=== PATIENT | female | born 1960 | race Caucasian/White ===

== ENCOUNTER → 2018-01-23 15:13 | Outpatient (CLI) | payer BC, SELFPAY ==
--- NOTE | 2018-01-23 15:18 | XR_ITS ---
XR foot LT min 3V Ordering Physician: Salvatore Burks Patient Age: 57 years: Female HISTORY: ITS.REASON: LEFT FOOT PAIN,S/P IMJURY 2 WKS AGO TECHNIQUE: 3 views of the left foot . COMPARISON :Left ankle study from December 2009 FINDINGS No acute fracture or findings Normal relationships. No erosions. What appear to be old fractures in the proximal shaft of the third and fourth metatarsals. These appear old. I would of favor remote injury. In fact in reviewing the PACS files, there is a left ankle study from 2009 which I believe shows some subtle old healed fractures of the proximal fourth and fifth metatarsal further supporting these are old Otherwise the metatarsals are intact with no acute findings. Tarsals intact Accessory ossicle at the margin of the the cuboid is stable. The toes unremarkable IMPRESSION: No acute findings Old appearing fractures at the proximal fourth and fifth metatarsals . (These old healed fractures vaguely evident on a ankle study from 2009)
== END ==
PROVIDERS: PCP Internal Medicine; Visit Provider Internal Medicine
DX: M79.672 Pain in left foot (principal)
CPT/HCPCS: 73630

== ENCOUNTER → 2018-04-10 16:00 | Outpatient (CLI) | payer BC, SELFPAY ==
--- NOTE | 2018-04-10 16:07 | XR_ITS ---
XR ankle LT min 3V HISTORY: ITS.REASON: ANKLE INJURY; LATERAL PAIN ORDERING PHYSICIAN: Salvatore Burks PATIENT AGE: 57 years FINDINGS: COMPARISON is made to 12/18/2009 Chronic changes are present at the tip of the medial malleolus. No acute fracture or dislocation is evident. There is a defect within the anterior distal tibia within the articular region. This measures 7 mm. IMPRESSION: No acute finding. 7 mm articular defect of the anterior distal tibia
== END ==
PROVIDERS: PCP Internal Medicine; Visit Provider Internal Medicine
DX: M25.572 Pain in left ankle and joints of left foot (principal)
CPT/HCPCS: 73610

== ENCOUNTER → 2018-05-03 14:20 | Outpatient (CLI) | payer BC, SELFPAY ==
--- NOTE | 2018-05-03 14:25 | XR_ITS ---
XR shoulder LT min 2V HISTORY: ITS.REASON: LT SHOULDER PAIN ORDERING PHYSICIAN: Salvatore Burks PATIENT AGE: 57 years Comparison: None FINDINGS: No fracture or dislocation. No lytic or blastic change. There is normal mineralization. There are mild osteoarthritic changes of the acromioclavicular joint and glenohumeral joint. No significant subacromial stenosis IMPRESSION: Mild osteoarthritis, no acute finding
== END ==
PROVIDERS: PCP Internal Medicine; Visit Provider Internal Medicine
DX: M25.512 Pain in left shoulder (principal)
CPT/HCPCS: 73030

== ENCOUNTER → 2019-02-24 10:54 | Outpatient (CLI) | payer OTHER, SELFPAY ==
--- NOTE | 2019-02-24 11:12 | XR_ITS ---
PROCEDURE: XR SHOULDER LT MIN 2V CLINICAL INDICATION: INJURY 3 WEEKS AGO Pain following injury COMPARISON: [id number] XR shoulder LT min 2V from 05/03/2018 FINDINGS: No acute fracture or dislocation. There are mild osteoarthritic changes at the acromioclavicular joint not significantly changed IMPRESSION: No change with no acute finding Dictated by: Jared Griffiths MD 02/24/2019 11:29 Electronically signed by Jared Griffiths MD in [place] 02/24/2019 11:29
== END ==
PROVIDERS: PCP Internal Medicine; Visit Provider Internal Medicine
DX: M25.512 Pain in left shoulder (principal)
CPT/HCPCS: 73030

== ENCOUNTER → 2019-07-18 11:04 | Outpatient (CLI) | payer SELFPAY ==
--- NOTE | 2019-07-18 11:19 | ECG_ITS ---
APPROVED REPORT Exam: Resting ECG HR:78 bpm ECG Measurements Heart Rate 78 AXES NE 146 P 56 QRSd 74 QRS 94 QT 398 T 26 QTc 453 <Conclusion> Normal sinus rhythm Rightward axis-Suspect Limb Lead Reversal Incomplete RBBB Abnormal ECG Electronically signed by : Salvatore Burks, 07/18/2019 11:42:44
[2019-07-18 12:03] LABS: Troponin I < 0.02 ng/ml (0.00-0.06)
== END ==
PROVIDERS: PCP Internal Medicine; Visit Provider Internal Medicine
DX: R00.2 Palpitations (principal); R06.02 Shortness of breath
CPT/HCPCS: 36415; 84484; 93005

== ENCOUNTER → 2019-09-21 10:51 | Outpatient (CLI) | payer OTHER, SELFPAY ==
--- NOTE | 2019-09-21 10:57 | XR_ITS ---
PROCEDURE: XR FOOT LT MIN 3V CLINICAL INDICATION: INJURY, PAIN AND SWELLING Pain and swelling laterally COMPARISON: [id number] XR foot LT min 3V from 01/23/2018 FINDINGS: No acute fracture or dislocation is evident. Old fractures are present at the proximal aspect of the 3rd and 4th metatarsals. There are mild degenerative changes of the midfoot Other findings:None. IMPRESSION: No acute findings. Dictated by: Jared Griffiths MD 09/21/2019 11:17 Electronically signed by Jared Griffiths MD in [place] 09/21/2019 11:17
== END ==
PROVIDERS: PCP Internal Medicine; Visit Provider Internal Medicine
DX: M79.672 Pain in left foot (principal); M79.89 Other specified soft tissue disorders
CPT/HCPCS: 73630

== ENCOUNTER → 2020-10-15 12:00 | Outpatient (CLI) | payer SELFPAY ==
--- NOTE | 2020-10-15 12:05 | XR_ITS ---
PROCEDURE: XR FOOT LT MIN 3V CLINICAL INDICATION: LT FOOT PAIN COMPARISON: CR [id number] XR foot LT min 3V from 01/23/2018 CR XR FOOT LT MIN 3V from 09/21/2019 FINDINGS: No acute fractures or dislocations. Old healed fractures of the 3rd and 4th metatarsals. Bone density is normal. No significant soft tissue abnormality. IMPRESSION: No acute fractures or dislocations. Dictated by: Carmen Shaw 10/15/2020 12:59 Carmen Shaw in [place] 10/15/2020 12:59
== END ==
LOC: RAD 12:01
PROVIDERS: PCP Internal Medicine; Visit Provider Internal Medicine
DX: M79.672 Pain in left foot (principal)
CPT/HCPCS: 73630

== ENCOUNTER → 2021-02-10 15:43 | Outpatient (CLI) | payer OTHER, SELFPAY ==
--- NOTE | 2021-02-10 | CA_ITS ---
APPROVED REPORT Bilateral Lower Extremity Venous Study for DVT. Product Coordinator: GABY Indications Lower Extremity Pain: Bilateral Lower Extremity Edema: Bilateral Patient denies trauma. States her thighs began hurting 3 weeks ago. 2 weeks ago the pain began moving down the calves and into bilateral feet. She states bilateral legs are very sensitive to light touch. Risk Factors Obesity Vein Imaging CFV (R): compressive, spontaneous, phasic, augmentation FEM (R): compressive, spontaneous, phasic, augmentation POP (R): compressive, spontaneous, phasic, augmentation PTV (R): Compressible GSV (R): Compressible Peroneals (R):Compressible GAS (R): Compressible CFV (L): compressive, spontaneous, phasic, augmentation FEM (L): compressive, spontaneous, phasic, augmentation POP (L): compressive, spontaneous, phasic, augmentation PTV (L): Compressible GSV (L): Compressible Peroneals (L):Compressible GAS (L): Compressible Findings No evidence of DVT or superficial thrombophlebitis in the veins scanned of the right lower extremity. No evidence of DVT or superficial thrombophlebitis in the veins scanned of the left lower extremity. Conclusion No evidence of DVT or superficial thrombophlebitis in the veins scanned of the right lower extremity. No evidence of DVT or superficial thrombophlebitis in the veins scanned of the left lower extremity. Critical Notification Critical Value: No Physician Notified Date: 02/10/2021 Time: 16:41 Physician Name: Dr. Burks Electronically signed by : Jared Griffiths MD 02/11/2021 15:55:49
[2021-02-10 20:22] LABS: Amphetamine/Metha Screen,Urine Negative ng/ml (<1000)
[2021-02-10 20:23] LABS: Barbiturates Screen,Urine Negative ng/ml (<200); Basophils % 0.6 % (0.1-2.0); Benzodiazepines Screen,Urine Negative ng/ml (<200); Eosinophils # 0.1 K/mm3 (0.0-0.4); Eosinophils % 2.1 % (0.1-12.0); Hematocrit 32.8 % (37.0-47.0); Hemoglobin 10.3 g/dL (12.2-16.2); Lymphocytes # 1.6 K/mm3 (0.7-4.5); Lymphocytes % 30.7 % (10-50); Mean Corpuscular HGB Conc 31.3 g/dL (31.8-35.4); Mean Corpuscular Volume 92.6 fl (81-99); Mean Platelet Volume 8.7 fl (7.4-10.4); Monocytes # 0.4 K/mm3 (0.1-1.0); Monocytes % 7.2 % (1.7-9.3); Neutrophils # 3.1 K/mm3 (1.8-7.8); Neutrophils % 59.4 % (37.0-80.0); Platelet Count 391 K/mm3 (142-424); Red Blood Count 3.54 M/mm3 (4.20-5.40); Red Cell Distribution Width 14.7 % (11.5-17.5); White Blood Count 5.2 K/mm3 (4.8-10.8)
[2021-02-10 20:24] LABS: Cannabinoid Screen,Urine Negative ng/ml (<50); Cocaine Screen,Urine Negative ng/ml (<300)
[2021-02-10 20:25] LABS: Methadone Screen,Urine Negative ng/ml (<300)
[2021-02-10 20:26] LABS: Opiate Screen,Urine Positive ng/ml (<300); Phencyclidine Screen,Urine Negative ng/ml (<25)
[2021-02-10 21:17] LABS: Alanine Aminotransferase 15 U/L (12-78); Albumin Level 3.5 g/dl (3.5-5.0); Albumin/Globulin Ratio 1.3 (1.1-1.8); Alkaline Phosphatase 22 U/L (38-126); Anion Gap 15.3 mEq/L (5-15); Aspartate Amino Transferase 23 U/L (14-36); Blood Urea Nitrogen 29 mg/dl (7-17); Calcium 9.2 mg/dl (8.4-10.2); Carbon Dioxide 25 mmol/L (22.0-30.0); Chloride 102 mmol/L (98-107); Estimated Glomerular Filt Rate 46 ml/min (>60); GFR (African American) 55 ML/MIN (>60); Globulin 2.6 g/dL (1.3-3.2); Glucose 76 mg/dl (74-100); Potassium 5.3 mmoL/L (3.5-5.1); Sodium 137 mmol/L (136-145); Total Protein,Serum 6.1 g/dl (6.3-8.2)
[2021-02-10 21:18] LABS: Bilirubin,Total < 0.1 mg/dl (0.2-1.3)
[2021-02-10 21:27] LABS: NT Pro Brain Natriuretic Pep. 673 pg/mL (0-125)
[2021-02-10 21:35] LABS: Free T4 (Free Thyroxine) 0.96 ng/dl (0.78-2.19)
[2021-02-10 21:49] LABS: Thyroid Stimulating Hormone 0.96 uIU/mL (0.465-4.68)
== END ==
PROVIDERS: PCP Internal Medicine; Visit Provider Internal Medicine
DX: I87.2 Venous insufficiency (chronic) (peripheral) (principal); R60.9 Edema, unspecified; G43.819 Other migraine, intractable, without status migrainosus; M79.7 Fibromyalgia; M54.2 Cervicalgia; M54.42 Lumbago with sciatica, left side; I10 Essential (primary) hypertension
CPT/HCPCS: 80053; 80305; 83880; 84439; 84443; 85025; 93970

== ENCOUNTER → 2021-02-21 15:29 | Outpatient (CLI) | payer OTHER, SELFPAY | PROVIDERS: Visit Provider Nurse Practitioner Family | DX: Z20.822 Contact with and (suspected) exposure to COVID-19 (principal); J02.9 Acute pharyngitis, unspecified | CPT/HCPCS: C9803; U0003; U0005 ==

== ENCOUNTER → 2021-03-13 14:12 | Outpatient (CLI) | payer OTHER, MEDICAID, SELFPAY ==
[2021-03-13 15:02] LABS: Reticulocyte % (Auto) 1.6 % (0.9-3.2)
[2021-03-13 15:13] LABS: Iron 85 ug/dL (37-170)
[2021-03-13 15:38] LABS: Total Iron Binding Capacity 502 ug/dL (265-497)
== END ==
PROVIDERS: Visit Provider Internal Medicine
DX: I87.2 Venous insufficiency (chronic) (peripheral) (principal); R60.9 Edema, unspecified; I10 Essential (primary) hypertension; M79.0 Rheumatism, unspecified
CPT/HCPCS: 83540; 83550; 85044

== ENCOUNTER → 2021-09-28 16:59 | Outpatient (CLI) | payer OTHER, SELFPAY | PROVIDERS: PCP Internal Medicine; Visit Provider Internal Medicine | DX: S41.102A Unspecified open wound of left upper arm, initial encounter | CPT/HCPCS: 87070; 87077; 87205 ==

== ENCOUNTER → 2021-12-02 16:42 | Outpatient (CLI) | payer OTHER, SELFPAY ==
[2021-12-02 17:18] LABS: Basophils # 0.1 K/mm3 (0-0.2); Basophils % 0.9 % (0.1-2.0); Eosinophils # 0.4 K/mm3 (0.0-0.4); Eosinophils % 5.9 % (0.1-12.0); Hematocrit 31.9 % (37.0-47.0); Hemoglobin 10.4 g/dL (12.2-16.2); Lymphocytes # 2.1 K/mm3 (0.7-4.5); Mean Corpuscular HGB Conc 32.6 g/dL (31.8-35.4); Mean Corpuscular Hemoglobin 26.6 pg (27.0-31.2); Mean Corpuscular Volume 81.7 fl (81-99); Mean Platelet Volume 7.5 fl (7.4-10.4); Monocytes # 0.7 K/mm3 (0.1-1.0); Monocytes % 10.1 % (1.7-9.3); Neutrophils # 3.2 K/mm3 (1.8-7.8); Neutrophils % 50.1 % (37.0-80.0); Platelet Count 381 K/mm3 (142-424); White Blood Count 6.4 K/mm3 (4.8-10.8)
[2021-12-02 18:14] LABS: Erythrocyte Sedimentation Rate 48 mm/hr (0-30)
[2021-12-11 08:14] LABS: Lyme B. burgdorferi PCR Blood Negative (Negative)
== END ==
PROVIDERS: PCP Internal Medicine; Visit Provider Internal Medicine
DX: M25.50 Pain in unspecified joint (principal)
CPT/HCPCS: 85025; 85651; 87476

== ENCOUNTER → 2022-03-22 16:49 | Outpatient (CLI) | payer OTHER, SELFPAY ==
[2022-03-22 17:54] LABS: Basophils # 0.1 K/mm3 (0-0.2); Basophils % 1.1 % (0.1-2.0); Eosinophils # 0.4 K/mm3 (0.0-0.4); Eosinophils % 5.3 % (0.1-12.0); Hematocrit 35.9 % (37.0-47.0); Hemoglobin 11.3 g/dL (12.2-16.2); Lymphocytes # 1.9 K/mm3 (0.7-4.5); Lymphocytes % 24.5 % (10-50); Mean Corpuscular HGB Conc 31.6 g/dL (31.8-35.4); Mean Corpuscular Hemoglobin 27.7 pg (27.0-31.2); Mean Corpuscular Volume 87.7 fl (81-99); Mean Platelet Volume 8.2 fl (7.4-10.4); Monocytes # 0.5 K/mm3 (0.1-1.0); Monocytes % 6.4 % (1.7-9.3); Neutrophils # 4.9 K/mm3 (1.8-7.8); Neutrophils % 62.7 % (37.0-80.0); Platelet Count 429 K/mm3 (142-424); Red Blood Count 4.09 M/mm3 (4.20-5.40); White Blood Count 7.7 K/mm3 (4.8-10.8)
[2022-03-22 18:07] LABS: Amphetamine/Metha Screen,Urine Negative ng/ml (<1000)
[2022-03-22 18:08] LABS: Barbiturates Screen,Urine Negative ng/ml (<200); Benzodiazepines Screen,Urine Negative ng/ml (<200)
[2022-03-22 18:09] LABS: Cannabinoid Screen,Urine Negative ng/ml (<50); Cocaine Screen,Urine Negative ng/ml (<300)
[2022-03-22 18:10] LABS: Methadone Screen,Urine Negative ng/ml (<300)
[2022-03-22 18:11] LABS: Opiate Screen,Urine Positive ng/ml (<300); Phencyclidine Screen,Urine Negative ng/ml (<25)
[2022-03-22 18:18] LABS: Erythrocyte Sedimentation Rate 34 mm/hr (0-30)
[2022-03-22 18:35] LABS: Total Iron Binding Capacity 484 ug/dL (265-497)
[2022-03-22 19:18] LABS: Vitamin B12 475 pg/mL (239-931)
[2022-03-22 19:46] LABS: Iron 70 ug/dL (37-170)
[2022-03-28 08:10] LABS: Oxycodone Positive (.); Oxycodone Confirm >3000 ng/mL (Cutoff=100); Oxymorphone Positive (.); Oxymorphone Confirm >3000 ng/mL (Cutoff=100)
== END ==
PROVIDERS: PCP Internal Medicine; Visit Provider Internal Medicine
DX: M79.7 Fibromyalgia (principal); M54.2 Cervicalgia; G43.909 Migraine, unspecified, not intractable, without status migrainosus; M54.42 Lumbago with sciatica, left side; M17.0 Bilateral primary osteoarthritis of knee; R60.9 Edema, unspecified
CPT/HCPCS: 80305; 80365; 82607; 83540; 83550; 85025; 85044; 85651

== ENCOUNTER → 2022-05-18 11:42 | Outpatient (CLI) | payer OTHER, SELFPAY ==
--- NOTE | 2022-05-18 11:47 | XR_ITS ---
FINAL REPORT CLINICAL HISTORY: BILATERAL HIP PAIN FINDINGS: AP PELVIS: A single view of the pelvis was obtained. There is no acute fracture or dislocation. There is mild degenerative change of both hips. Soft tissues are unremarkable. IMPRESSION: No acute process. Reviewed, Interpreted and Dictated by Herrera Addison III, MD Transcribed by Domingo Underwood Authenticated and [facility]
--- NOTE | 2022-05-18 11:47 | XR_ITS ---
FINAL REPORT CLINICAL HISTORY: L FOOT PAIN COMPARISON: October 2020 FINDINGS: 3 views of the left foot were obtained. There are chronic fractures of the proximal 3rd and 4th metatarsals, stable. There is a new subacute fracture of the 2nd metatarsal. There are mild degenerative changes. The soft tissues are unremarkable. IMPRESSION: Subacute 2nd metatarsal fracture with chronic 3rd and 4th metatarsal fractures. These may represent stress fractures. Reviewed, Interpreted and Dictated by Herrera Addison III, MD Transcribed by Domingo Underwood Authenticated and [facility]
== END ==
PROVIDERS: PCP Internal Medicine; Visit Provider Internal Medicine
DX: M79.672 Pain in left foot (principal); M25.552 Pain in left hip; M25.551 Pain in right hip
CPT/HCPCS: 72170; 73630

== ENCOUNTER 2022-07-08 17:46 | Emergency (ER) | payer OTHER, SELFPAY ==
[2022-07-08] VITALS (8 sets, daily range): BP systolic 100–134; BP diastolic 43–112; PULSE 88–95; RESP 12–18; TEMP 36.7–37.2; O2SAT 94–100; BMI 33.0
--- NOTE | 2022-07-08 17:51 | XR_ITS ---
PROCEDURE INFORMATION: Exam: XR Right Hip Exam date and time: 07/08/2022 6:07 PM Age: 61 years old Clinical indication: Injury or trauma; Fall; Fracture of pelvis & hip; Right; Traumatic fracture; Neck of femur, midcervical; Closed fracture; Additional info: Pain R hip TECHNIQUE: Imaging protocol: Radiologic exam of the Right hip. Views: 2 or 3 views hip with pelvis when performed. COMPARISON: CR XR PELVIS 1-2V 05/18/2022 11:54 AM FINDINGS: Bones/joints: There is an acute subtrochanteric displaced and angulated fracture of the right femur. In the absence of substantial trauma, fracture pattern can be seen in the context of bisphosphonate use. Soft tissues: Unremarkable. IMPRESSION: There is an acute subtrochanteric, displaced and angulated fracture of the right proximal femur. In the absence of substantial trauma, fracture pattern can be seen in the context of bisphosphonate use.
--- NOTE | 2022-07-08 18:23 | PC.NURSE ---
DR ASHBY SPEAKING WITH DR NUGENT
--- NOTE | 2022-07-08 18:24 | HMH.EDGENADL ---
Discharge Plan Disposition Patient Disposition: Xfer Short-Term Hosp Condition: Fair Prescriptions Prescriptions: No Action oxycodone 10 mg tablet 10 mg PO DAILY PRN (Reason: pain) Label Comments: TAKE ONE TABLET BY MOUTH EVERY 4 HOURS NEEDED FOR PAIN (DO not exceed 6 tablets daily) MAY CAUSE DROWSINESS furosemide 40 mg tablet 40 mg PO DAILY Label Comments: TAKE TWO TABLETS BY MOUTH ONCE a DAY DIRECTED spironolactone 50 mg tablet 50 mg PO DAILY Label Comments: TAKE ONE TABLET BY MOUTH TWICE DAILY FOR fluid AND blood pressure irbesartan 150 mg tablet 150 mg PO DAILY Label Comments: TAKE ONE TABLET BY MOUTH TWICE DAILY trazodone 50 mg tablet 50 mg PO HS Label Comments: TAKE 1 TO 2 TABLET(S) BY MOUTH EVERY DAY AT BEDTIME NEEDED MAY CAUSE DROWSINESS Duloxetine HCl 60 MG tablet 60 mg PO DAILY Referrals Follow up/Referrals: Salvatore Burks MD [Primary Care Provider] - See instructions Clinical Impressions Clinical Impression: Closed fracture of right hip Discharge ED Provider: Tam De Los Santos [facility] Adult [facility] General Chief complaint: Fall Stated complaint: R HIP PAIN Time Seen by Provider: 07/08/22 17:46 Mode of Arrival: Ambulatory Source of Information: Patient Limitations: Physical Limitations Description of Symptoms (Recalled from ER Triage Doc. by RN): Pt reports ground-level fall in home when she tripped over the cat; RLE shortening, and right hip pain severe Related Data Home Medications Medication Instructions Recorded Confirmed Duloxetine HCl 60 mg PO DAILY . 12/25/17 02/21/21 furosemide 40 mg tablet 40 mg PO DAILY 02/21/21 02/21/21 irbesartan 150 mg tablet 150 mg PO DAILY 02/21/21 02/21/21 oxycodone 10 mg tablet 10 mg PO DAILY PRN pain 02/21/21 02/21/21 spironolactone 50 mg tablet 50 mg PO DAILY 02/21/21 02/21/21 trazodone 50 mg tablet 50 mg PO HS 02/21/21 02/21/21 Allergies Allergy/AdvReac Type Severity Reaction Status Date / Time penicillin G [PENICILLIN G] Allergy Intermediate Verified 02/21/21 15:15 carisoprodol [From [facility]] Allergy Unknown Verified 02/21/21 15:15 MUSCLE RELAXANTS Allergy Mild Uncoded 05/24/17 14:56 PFSH PFSH Disclaimer: The information contained in this section may have been updated after the patient was seen, as this information can be updated by other users. Social History Smoking Status: Never smoker alcohol intake: never current occupational status: retired Travel in the last 8 weeks: None ROS Obtained: Yes Systems reviewed as appropriate & no additional complaints except as documented Constitutional Constitutional: Denies fever(s), Denies headache(s) and Denies weakness ENT Ears, Nose, Mouth, and Throat: Denies headache(s), Denies nasal discharge and Denies sore throat Cardiovascular Cardiovascular: Denies chest pain Respiratory Respiratory: Denies shortness of breath and Denies cough Gastrointestinal Gastrointestingal: Denies abdominal pain, constipation, diarrhea or vomiting Genitourinary Female Genitourinary: Denies difficulty voiding, Denies dysuria and Denies flank pain Musculoskeletal Musculoskeletal: Reports arthralgias (Right hip) and Denies numbness Neurologic Neurologic: Denies headache(s), Denies numbness and Denies weakness Physical Exam General General appearance: alert and in no apparent distress Head Head exam: atraumatic and normocephalic Eye Eye exam: Present normal appearance and EOMI ENT ENT exam: Present mucous membranes moist Neck Neck exam: Present normal inspection and trachea midline Chest Chest inspection: Present normal inspection and symmetric chest wall rise Respiratory Respiratory exam: Present normal lung sounds bilaterally; Absent respiratory distress Cardiovascular Cardiovascular exam: Present regular rate, normal rhythm and normal heart sounds Abdominal Exam Abdominal exam: Present soft and normal bowel sounds; Absent distention,
--- NOTE | 2022-07-08 18:28 | CT_ITS ---
PROCEDURE INFORMATION: Exam: CT Right Lower Extremity Without Contrast, Hip Exam date and time: 07/08/2022 6:58 PM Age: 61 years old Clinical indication: Injury or trauma; Fall; Fracture, pathological; Additional info: Fracture, R/O pathologic FX TECHNIQUE: Imaging protocol: CT of the Right lower extremity without contrast was performed. Exam focused on the hip. 3D rendering (Not supervised by radiologist): MIP and/or 3D reconstructed images were created by the technologist. Radiation optimization: All CT scans at this facility use at least one of these dose optimization techniques: automated exposure control; mA and/or kV adjustment per patient size (includes targeted exams where dose is matched to clinical indication); or iterative reconstruction. Other protocol: This patient has received 0 known CTs and 0 known cardiac nuclear medicine studies in the 12 months prior to the current study. COMPARISON: CR XR HIP RT 2-3V W/PELVIS 07/08/2022 6:07 PM FINDINGS: Bones/joints: There is redemonstration of subtrochanteric fracture. The fracture is displaced in laterally angulated. Soft tissues: Normal. Urinary bladder: Urinary bladder is decompressed around a Rankin catheter. Intravesicular air likely from recent instrumentation. IMPRESSION: There is redemonstration of subtrochanteric fracture. The fracture is displaced in laterally angulated. In the absence of substantial trauma, fracture pattern can be seen in the context of bisphosphonate use. Correlate clinically.
--- NOTE | 2022-07-08 18:29 | XR_ITS ---
PROCEDURE INFORMATION: Exam: XR Chest Exam date and time: 07/08/2022 7:14 PM Age: 61 years old Clinical indication: Other: Hip FX; Additional info: Hip FX, known high BP TECHNIQUE: Imaging protocol: Radiologic exam of the chest. Views: 1 view. COMPARISON: CR XR SHOULDER LT MIN 2V 02/24/2019 11:13 AM FINDINGS: Lungs: No evidence of pneumonia or interstitial edema. Pleural spaces: Unremarkable. No pleural effusion. No pneumothorax. Heart/Mediastinum: Unremarkable. No cardiomegaly. Bones/joints: Unremarkable. IMPRESSION: No evidence of pneumonia or interstitial edema.
--- NOTE | 2022-07-08 18:38 | ECG_ITS ---
APPROVED REPORT Exam: Resting ECG HR:86 bpm ECG Measurements Heart Rate 86 AXES MD 150 P 66 QRSd 84 QRS 32 QT 366 T 33 QTc 409 Conclusion SINUS RHYTHM LOW QRS VOLTAGE IN PRECORDIAL LEADS Previously noted Q waves in III - of questionable significance ABNORMAL ECG UNCONFIRMED REPORT Electronically signed by : Mark Anthony Pace MD 07/09/2022 20:56:46
[2022-07-08 18:52] LABS: Microscopic, Urine URINE MICROSCOPIC (MICROSCOPIC)
[2022-07-08 18:52] LABS: Coronavirus 19, PCR Not Detected (NotDetected); Influenza A, PCR Not Detected (NotDetected); Influenza B, PCR Not Detected (NotDetected)
[2022-07-08 18:56] LABS: Chloride 104 mmol/L (98-107)
[2022-07-08 18:57] LABS: Potassium 4.5 mmoL/L (3.5-5.1); Sodium 136 mmol/L (136-145)
[2022-07-08 18:59] LABS: Alanine Aminotransferase 19 U/L (12-78); Alkaline Phosphatase 30 U/L (38-126); Anion Gap 10.5 mEq/L (5-15); Aspartate Amino Transferase 25 U/L (14-36); Blood Urea Nitrogen 27 mg/dl (7-17); Carbon Dioxide 26 mmol/L (22.0-30.0); Creatinine Clearance Estimated 72 mL/min (50-200); Estimated Glomerular Filt Rate 56 ml/min (>60); GFR (African American) 68 ML/MIN (>60)
[2022-07-08 19:00] LABS: Albumin Level 3.8 g/dl (3.5-5.0); Albumin/Globulin Ratio 1.5 (1.1-1.8); Basophils # 0.1 K/mm3 (0-0.2); Basophils % 0.7 % (0.1-2.0); Calcium 8.8 mg/dl (8.4-10.2); Eosinophils # 0.4 K/mm3 (0.0-0.4); Eosinophils % 3.8 % (0.1-12.0); Globulin 2.6 g/dL (1.3-3.2); Glucose 109 mg/dl (74-100); Hematocrit 32.2 % (37.0-47.0); Hemoglobin 10.6 g/dL (12.2-16.2); Lymphocytes # 1.6 K/mm3 (0.7-4.5); Lymphocytes % 15.2 % (10-50); Mean Corpuscular HGB Conc 33.1 g/dL (31.8-35.4); Mean Corpuscular Volume 84.6 fl (81-99); Mean Platelet Volume 8.2 fl (7.4-10.4); Monocytes # 0.6 K/mm3 (0.1-1.0); Monocytes % 5.2 % (1.7-9.3); Neutrophils % 75.1 % (37.0-80.0); Platelet Count 360 K/mm3 (142-424); Red Cell Distribution Width 14.7 % (11.5-17.5); Total Protein,Serum 6.4 g/dl (6.3-8.2); White Blood Count 10.6 K/mm3 (4.8-10.8)
[2022-07-08 19:09] LABS: Appearance,Urine CLEAR (Clear); Bilirubin,Urine Negative (Negative); Blood, Urine Negative (Negative); Color,Urine YELLOW (Yellow); Glucose,Urine (UA) Negative (Negative); Ketones,Urine Negative (Negative); Leukocyte Esterase,Urine Negative (Negative); Nitrate,Urine Negative (Negative); PH,Urine 5.5 (5.0-8.5); Protein,Urine Negative (Negative); Specific Gravity, Urine >= 1.030 (1.005-1.030); Urobilinogen,Urine 0.2 EU/dl (0.2)
[2022-07-08 19:14] LABS: Bilirubin,Total 0.1 mg/dl (0.2-1.3)
--- NOTE | 2022-07-08 19:15 | PC.NURSE ---
DR ASHBY TALKING TO DR NUGENT
[2022-07-08 19:25] LABS: Uric Acid Crystals,Urine 1+ /lpf
[2022-07-08 19:26] LABS: Bacteria,Urine Trace /lpf
--- NOTE | 2022-07-08 19:38 | PC.NURSE ---
DUE TO THE FX SHE HAS DR RAFFI ANDERSON PT TRANSFERRED TO [facility] CT WAS POWERSHARED TO [facility]
--- NOTE | 2022-07-08 19:40 | PC.NURSE ---
Called [facility] for pt consult they will call us back
--- NOTE | 2022-07-08 19:40 | PC.NURSE ---
Pt given dilaudid and ice chips per Dr De Los Santos.
--- NOTE | 2022-07-08 20:28 | PC.NURSE ---
Dr. De Los Santos speaking to [facility]
--- NOTE | 2022-07-08 20:31 | PC.NURSE ---
pt accepted to [facility] ED by Dr. Arredondo
--- NOTE | 2022-07-08 20:56 | PC.NURSE ---
report called to ANNETTA Saucedo at ER
--- NOTE | 2022-07-08 21:16 | PC.NURSE ---
[facility] called for transport
--- NOTE | 2022-07-08 21:26 | PC.NURSE ---
pt given another dose of dilaudid before transport
--- NOTE | 2022-07-08 21:28 | PC.NURSE ---
PT MEDICATED PRIOR TO TRANSFER
--- NOTE | 2022-07-08 21:31 | PC.NURSE ---
[place] to bedside
== END 2022-07-08 21:54 | disposition short-term general hospital (02) ==
PROVIDERS: Emergency Provider Emergency Medicine; PCP Internal Medicine
DX: S72.91XA Unspecified fracture of right femur, initial encounter for closed fracture (principal); W01.0XXA Fall on same level from slipping, tripping and stumbling without subsequent striking against object, initial encounter
CPT/HCPCS: 51702; 71045; 73502; 73700; 80053; 81001; 85025; 93005; 96374; 99285; C9803; U0003; U0005

== ENCOUNTER 2024-10-01 16:56 | Outpatient (CLI) | payer MEDICARE, SELFPAY ==
[2024-10-01 17:17] LABS: Basophils # 0.1 K/mm3 (0-0.2); Basophils % 0.9 % (0.1-2.0); Eosinophils # 0.2 Kmm3 (0.0-0.4); Eosinophils % 2.9 % (0.1-12.0); Hematocrit 35.3 % (37.0-47.0); Hemoglobin 11.6 g/dL (12.2-16.2); Lymphocytes # 2.4 K/mm3 (0.7-4.5); Lymphocytes % 36.8 % (10-50); Mean Corpuscular HGB Conc 32.9 g/dL (31.8-35.4); Mean Corpuscular Hemoglobin 29.9 pg (27.0-31.2); Mean Platelet Volume 9.5 fl (7.4-10.4); Monocytes # 0.6 K/mm3 (0.1-1.0); Monocytes % 9.3 % (1.7-9.3); Neutrophils # 3.3 K/mm3 (1.8-7.8); Neutrophils % 49.9 % (37.0-80.0); Nucleated Red Blood Cells # 0 10^3/uL; Nucleated Red Blood Cells % 0 %; Platelet Count 330 K/mm3 (142-424); Red Blood Count 3.88 M/mm3 (4.20-5.40); Red Cell Distribution Width 13.2 % (11.5-17.5); Reticulocyte % (Auto) 0.8 % (0.9-3.2); White Blood Count 6.6 K/mm3 (4.8-10.8)
[2024-10-01 17:34] LABS: Albumin Level 4.2 g/dl (3.5-5.0); Chloride 99 mmol/L (98-107); Sodium 135 mmol/L (136-145)
[2024-10-01 17:35] LABS: Potassium 4.5 mmoL/L (3.5-5.1)
[2024-10-01 17:37] LABS: Alanine Aminotransferase 38 U/L (12-78); Albumin/Globulin Ratio 1.6 (1.1-1.8); Alkaline Phosphatase 31 U/L (38-126); Anion Gap 8.5 mEq/L (5-15); Aspartate Amino Transferase 39 U/L (14-36); Bilirubin,Total 0.2 mg/dl (0.2-1.3); Blood Urea Nitrogen 26 mg/dl (7-17); Carbon Dioxide 32 mmol/L (22.0-30.0); Cholesterol 181 mg/dl (140-200); Estimated Glomerular Filt Rate 45 ml/min (>60); GFR (African American) 55 ML/MIN (>60); Globulin 2.6 g/dL (1.3-3.2); Iron 115 ug/dL (37-170); Total Protein,Serum 6.8 g/dl (6.3-8.2); Triglycerides 71 mg/dl (30-150); VLDL Cholesterol 14 mg/dL (0-40)
[2024-10-01 17:38] LABS: Calcium 10.7 mg/dl (8.4-10.2); Chol/HDL Ratio 2.1 (1-3.5); Glucose 92 mg/dl (74-100); HDL Cholesterol 87 mg/dl (40-60)
[2024-10-01 17:48] LABS: Total Iron Binding Capacity 456 ug/dL (265-497)
[2024-10-01 17:49] LABS: Direct LDL Cholesterol 68.36 mg/dL (100-129)
[2024-10-01 18:08] LABS: Thyroid Stimulating Hormone 1.79 uIU/mL (0.465-4.68)
[2024-10-01 18:12] LABS: Hemoglobin A1C 6.2 % (4.0-6.0)
[2024-10-01 18:33] LABS: Vitamin B12 769 pg/mL (239-931)
== END 2024-10-01 23:59 | disposition home or self-care (01) ==
LOC: LAB.DROPOF 16:56
PROVIDERS: PCP Internal Medicine; Visit Provider Internal Medicine
DX: E78.5 Hyperlipidemia, unspecified (principal); I10 Essential (primary) hypertension; D64.9 Anemia, unspecified; R60.9 Edema, unspecified; R73.02 Impaired glucose tolerance (oral); Z83.3 Family history of diabetes mellitus; Z68.35 Body mass index [BMI] 35.0-35.9, adult; E66.9 Obesity, unspecified; M15.0 Primary generalized (osteo)arthritis; R26.2 Difficulty in walking, not elsewhere classified; Z91.81 History of falling
CPT/HCPCS: 36415; 80053; 80061; 82607; 83036; 83540; 83550; 84443; 85025; 85044